=== PATIENT | male | born 1970 | race Caucasian/White ===

== ENCOUNTER 2023-12-07 09:17 | Day surgery (SDC) | payer BC ==
[~2023-12-07] VITALS: Ht 182.9 cm; Wt 102.1 kg
[2023-12-07] MEDS ORDERED: SEVOFLURANE 15 MIN GAS INH ONE (10:45)
[2023-12-07] MEDS ORDERED: PROPOFOL 200MG/ 20ML VIAL (DIPRIVAN) IV ONE (10:45)
[2023-12-07] MEDS ORDERED: OXYMETAZOLINE HCL 0.05% NASAL SPRAY NS ONE (10:45)
[2023-12-07] MEDS ORDERED: MUPIROCIN 2% TOPICAL OINTMENT 22 GM ONE (10:45)
[2023-12-07] MEDS ORDERED: KETOROLAC TROMETHAMINE 30 MG VIAL ONE ×2 (10:45→13:44)
[2023-12-07] MEDS ORDERED: GLYCOPYRROLATE 0.2 MG/ML VIAL ONE (10:45)
[2023-12-07] MEDS ORDERED: LR 1,000 ML IV.SOLN IV ONE (10:45)
[2023-12-07] MEDS ORDERED: METOCLOPRAMIDE HCL 10 MG/2 ML VIAL ONE (10:45)
[2023-12-07] MEDS ORDERED: ONDANSETRON HCL 4 MG/2 ML VIAL ONE (10:45)
[2023-12-07] MEDS ORDERED: MIDAZOLAM HCL 5 MG/5 ML VIAL ONE (10:45)
[2023-12-07] MEDS ORDERED: EPINEPHrine HCL 1 MG/ML VIAL ONE (10:45)
[2023-12-07] MEDS ORDERED: ROCURONIUM BROMIDE 10 MG/ML (ZEMURON) ONE (10:45)
[2023-12-07] MEDS ORDERED: fentaNYL CITRATE/PF 100 MCG/2 ML AMP ONE (10:45)
[2023-12-07] MEDS ORDERED: NEOSTIGMINE METHYLSULFATE 1 MG/ML, 10 ML VIAL ONE (10:45)
[2023-12-07] MEDS ORDERED: LIDOCAINE/EPI 1% 1:100000 20 ML VIAL ONE (10:45)
[2023-12-07] MEDS: KETOROLAC TROMETHAMINE 30 MG VIAL IVP ONE (13:55)
[2023-12-07 14:12] VITALS: O2SAT 94
[2023-12-07] MEDS: RACEPINEPHRINE HCL 0.5 ML VIAL.NEB INH ONE (14:12)
[2023-12-07] MEDS ORDERED: RACEPINEPHRINE HCL 0.5 ML VIAL.NEB INH ONE (14:15)
[2023-12-07] MEDS ORDERED: HYDROmorphone 1 MG/ML INJ. CARTRIDGE ONE (14:22)
[2023-12-07] MEDS ORDERED: DEXAMETHASONE SOD PHOSPHATE 4 MG/ML VIAL ONE (14:22)
[2023-12-07] MEDS: DEXAMETHASONE SOD PHOSPHATE 4 MG/ML VIAL IVP ONE (14:30)
[2023-12-07] MEDS: HYDROmorphone 1 MG/ML INJ. CARTRIDGE IVP PRN (14:30)
[2023-12-07] MEDS: LABETALOL HCL 20 MG/4 ML CARTRIDGE IVP ONE (15:00)
[2023-12-07] MEDS ORDERED: LABETALOL HCL 20 MG/4 ML CARTRIDGE IVP ONE (15:01)
[2023-12-07 15:32] VITALS: BP_SYST 138; PULSE 91; RESP 20; TEMP 98.7
== END 2023-12-07 16:45 | disposition home or self-care (01) ==
LOC: SDS 09:17 → SMU 09:20 → SDS 16:45
PROVIDERS: ATTEND Otolaryngology
DX: D38.5 Neoplasm of uncertain behavior of other respiratory organs (principal); J34.2 Deviated nasal septum; J32.4 Chronic pansinusitis; J30.1 Allergic rhinitis due to pollen; E66.9 Obesity, unspecified; Z68.30 Body mass index [BMI] 30.0-30.9, adult
CPT/HCPCS: 30520; 30140; 31255; 31256; 31296; 94640; 94760; 88305; 88311; J1100; J0171; J3490; J1885; J2765; J2250; J2710; J2405; J2704; J3010; J1170; J7120; C1726; 88304